=== PATIENT | female | born 1950 | race Caucasian/White ===

== ENCOUNTER → 2016-09-27 | Outpatient (CLI) | payer MEDICARE, OTHER ==
--- NOTE | ~2016-09-27 | CR63 ---
[facility]. [facility] A Service of [facility] RADIOLOGY TEXT RESULTS PATIENT: DMITRI LEE LOCATION: [place] : 48 UNIT #: [id number] AGE: [address]: Andres Lara MD SEX: F ORDER DR: [id number] [address] [address] [id number] O MR#: [id number] Acc #: [id number] NAME: DMITRI LEE : 1950 SEX: F STUDY DATE/TIME: 09/27/2016 8:27 UNIT: [facility] ROOM: STUDY DESCRIPTION: CR Chest 2 View Attending Physician: Andres Lara M.D. Ordering Physician: Andres Lara M.D. Primary Care Physician: Andres aLra M.D. MEDICAL IMAGING REPORT This report is preliminary unless electronic signature is present. EXAM Two views chest, 09/27/2016. HISTORY Hypothyroidism. Left side upper lobe 2014 lung removed, upper, preventative med screen per patient, hypothyroidism, hyperlipidemia. FINDINGS PA and lateral radiographs of the chest are presented. Comparison 09/19/2013. Poor quality examination. Clothing artifact overlies relevant anatomy on AP and lateral views. The heart is upper limits of normal in size. The lungs are hyperinflated suggesting underlying COPD. There is no evidence of acute pulmonary disease, pleural effusion or pneumothorax. No suspicious nodule. Prior wedge resection, right apex. Skin jose g present. Healed granulomatous disease in the right lung. No acute bony abnormality. Degenerative changes in the spine. Visualized upper abdomen unremarkable. Dictated by... Rory Pabon M.D. THIS IS AN ELECTRONICALLY VERIFIED REPORT Rory Pabon M.D. at 09/27/2016 6:04 PM LIZ/melissa TD: 09/27/2016 14:25 JOB #: [id number] MEDICAL IMAGING REPORT Page 1 of 1
--- NOTE | ~2016-09-27 | EKG ---
PATIENT: DMITRI LEE UNIT #: [id number] Ventricular Rate: 60 BPM Atrial Rate: 60 BPM P-R Interval: 192 ms QRS Duration: 76 ms Q-T Interval: 378 ms QTC Calculation(Bezet): 378 ms P [place]: 67 degrees Calculated R [place]: 46 degrees Calculated T [place]: 44 degrees Diagnosis Line: Normal sinus rhythm Diagnosis Line: Possible Left atrial enlargement Diagnosis Line: Borderline ECG Diagnosis Line: When compared with ECG of 11-AUG-2015 08:25, Diagnosis Line: No significant change was found Diagnosis Line: Confirmed by TERESO HOUSER MD ([id number]) on Diagnosis Line: 09/27/2016 8:40:58 AM INTERPRETING MD: CORRINA ELKINS
[2016-09-27 08:30] LABS: HEMATOCRIT 40.9 % (35.0-45.0); MEAN CORPUSCULAR HEMOGLOBIN 31.5 PG (28-34); MEAN CORPUSCULAR HGB CONC 34.2 g/dL (30-36); MEAN PLATELET VOLUME 7.3 FL (6.5-11.5); RED BLOOD COUNT 4.45 X10e (3.90-5.30); RED CELL DISTRIBUTION WIDTH 13.6 % (11.0-15.5); WHITE BLOOD COUNT 4.5 X10e3 (4.0-10.5)
[2016-09-27 08:49] LABS: ALBUMIN SERUM 4.3 g/dL (3.5-5.0); BILIRUBIN,TOTAL 1.1 mg/dL (0.2-2.0); GLOM FILT RATE Estimated 58.3 mL/min (>60); POTASSIUM 3.8 mmol/L (3.5-5.1); PROTEIN TOTAL SERUM 6.8 g/dL (6.0-8.3)
== END | disposition home or self-care (01) ==
LOC: SLAB 08:12
PROVIDERS: Internal Medicine
DX: E03.9 Hypothyroidism, unspecified (principal); E78.5 Hyperlipidemia, unspecified
CPT/HCPCS: 36415; 71020; 80053; 80061; 84443; 85027; 93005

== ENCOUNTER → 2016-10-02 | Outpatient (CLI) | payer MEDICARE, OTHER ==
--- NOTE | ~2016-10-02 | MY11 ---
[facility] A Service of [facility] RADIOLOGY TEXT RESULTS PATIENT: DMITRI LEE LOCATION: [facility] : [birth year] UNIT #: [id number] AGE: [address]: Andres Lara MD SEX: F ORDER DR: [id number] [address] [address] [id number] O MR#: [id number] Acc #: [id number] NAME: DMITRI LEE : 1950 SEX: F STUDY DATE/TIME: 10/02/2016 9:14 UNIT: [facility] ROOM: STUDY DESCRIPTION: MY Mammogram Screening Dig Fredy Attending Physician: Andres Lara M.D. Referring Physician: Andres Lara M.D. Ordering Physician: Andres Lara M.D. Primary Care Physician: Andres Lara M.D. MEDICAL IMAGING REPORT This report is preliminary unless electronic signature is present. EXAM Digital screening implant mammogram 10/02/2016 [facility] HISTORY 66-year-old woman previous augmentation. No risk elevation. Annual screen. COMPARISON Mammograms 07/09/2009, 11/09/2011, 01/27/2013 FINDINGS Digital imaging of each breast was completed utilizing conventional projections and standard Edmar views. Review includes FDA-approved CAD device. Bilateral subglandular glandular double envelope implants are stable. Breast parenchyma is heterogeneously dense with scattered fibroglandular opacities in each breast. I see no interval occurring mass. There are no suspicious microcalcifications and no suspicious architectural deformity. IMPRESSION Benign mammogram. Stable subglandular double envelope implants. Annual screening recommended. Patient's over the age of 40 are entered into a reminder system with target due date for the next mammogram. A result letter will be sent to the patient. BIRADS: 2 Benign findings. Dictated by... Andry Gardiner M.D. [facility] A Service of [facility] RADIOLOGY TEXT RESULTS PATIENT: DMITRI LEE LOCATION: [facility] : 48 UNIT #: [id number] AGE: [address]: Andres Lara MD SEX: F ORDER DR: THIS IS AN ELECTRONICALLY VERIFIED REPORT Andry Gardiner M.D. at 10/02/2016 3:31 PM JBB/[email or web address] TD: 10/02/2016 15:22 JOB #: [id number] MEDICAL IMAGING REPORT Page 1 of 1
== END | disposition home or self-care (01) ==
LOC: SMAM 08:35
DX: Z12.31 Encounter for screening mammogram for malignant neoplasm of breast (principal); Z98.82 Breast implant status
CPT/HCPCS: G0202